=== PATIENT | female | born 1940 | race Caucasian/White ===

== ENCOUNTER 2019-08-06 09:24 | Outpatient (CLI) | payer MEDICARE | END 2019-08-06 23:59 | disposition home or self-care (01) | LOC: CFH 09:24 | PROVIDERS: ATTEND Internal Medicine | DX: K76.0 Fatty (change of) liver, not elsewhere classified (principal); J90 Pleural effusion, not elsewhere classified | CPT/HCPCS: 76700 ==

== ENCOUNTER 2019-08-19 09:09 | Inpatient (IN) | payer MEDICARE ==
[~2019-08-19] VITALS: Ht 162.6 cm; Wt 75.5 kg
--- NOTE | 2019-08-19 09:29 | NUR ---
pt to room. EDMD bedside.
--- NOTE | 2019-08-19 09:42 | NUR ---
78 Y/O FEMALE PRESENTS TO ED WITH C/O HYPOKALEMIA. 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 SO I'M HERE. I HAD THE LABS DONE" PT RESTING ON GURTRAVELERS REST. PT ASKED TO CHANGE INTO GOWN. PT FRIEND BEDSIDE.
--- NOTE | 2019-08-19 09:46 | NUR ---
PT STATES "I'VE HAD NAUSEA SINCE LATE MAY. MY PATHOLOGY LABORATORY AIDE HAS ALL SORTS OF TESTS GOING ON. SO THEY ARE AWARE."
--- NOTE | 2019-08-19 09:53 | NUR ---
PT PLACED ON CONT PULSE OX,NIBP, AND PHYSICIAN/ALLERGY/IMMUNOLOGY. BEDSIDE REPORT TO MIGUEL ÁNGEL MORELOS.
--- NOTE | 2019-08-19 09:55 | NUR ---
PT DENIES ANY PAIN AT THIS TIME.
[2019-08-19] MEDS ORDERED: SODIUM CHLORIDE FLUSH 10ML SYR IVF ONE (10:00)
[2019-08-19 10:18] LABS: BASOPHILS # (AUTO) 0.03 x10^3/uL (0-0.1); BASOPHILS % (AUTO) 0 % (0-1); EOSINOPHILS # (AUTO) 0.02 x10^3/uL (0-0.4); EOSINOPHILS % (AUTO) 0 % (1-7); LYMPHOCYTES # (AUTO) 0.79 x10^3/uL (1-3.4); LYMPHOCYTES % (AUTO) 8 % (22-44); MD NO; MEAN CORPUSCULAR HEMOGLOBIN 32.2 pg (27.0-34.8); MEAN CORPUSCULAR HGB CONC 33.8 g/dL (32.4-35.8); MEAN CORPUSCULAR VOLUME 95.1 fL (80-100); MEAN PLATELET VOLUME 8.9 fL (7.4-10.4); MONOCYTES # (AUTO) 1.15 x10^3/uL (0.2-0.8); MONOCYTES % (AUTO) 12 % (2-9); NEUTROPHILS # (AUTO) 8.06 x10^3/uL (1.8-6.8); NEUTROPHILS % (AUTO) 80 % (42-75); PLATELET COUNT 239 x10^3/uL (130-400); RED BLOOD COUNT 4.58 x10^6/uL (3.82-5.3); RED CELL DISTRIBUTION WIDTH 13.1 % (9.6-15.2)
[2019-08-19 10:36] LABS: ALANINE AMINOTRANSFERASE 55 U/L (12-78); ALBUMIN 2.9 g/dL (3.4-5.0); ALKALINE PHOSPHATASE 98 U/L (45-117); ANION GAP 10 mmol/L (5-15); BILIRUBIN,TOTAL 0.7 mg/dL (0.2-1.0); CALCIUM 8.5 mg/dL (8.5-10.1); CHLORIDE 88 mmol/L (98-107); CREATININE 2.39 mg/dL (0.55-1.02); TOTAL PROTEIN 7.1 g/dL (6.4-8.2)
--- NOTE | 2019-08-19 10:40 | NUR ---
LAB CALLED CRITICAL K OF 2.3. MADE AWARE.
[2019-08-19] MEDS ORDERED: POTASSIUM CHLORIDE 20 MEQ TAB.ER.PRT ONE (10:44)
[2019-08-19] MEDS ORDERED: NS + 40MEQ KCL 1,000 ML IV ONE (10:44)
[2019-08-19] MEDS: POTASSIUM CHLORIDE 40 MEQ in SODIUM CHLORIDE 0.45% 1,000 ML IV SCH ×2 (10:53→21:03)
[2019-08-19] MEDS ORDERED: POTASSIUM CHLORIDE 20 MEQ TAB.ER.PRT PO ONE (11:00)
[2019-08-19] MEDS ORDERED: OMEP-110 PO (11:19)
[2019-08-19] MEDS ORDERED: HYDROCHLOROTH12.5 MG PO (11:19)
[2019-08-19] MEDS ORDERED: LEVO50TA5 PO (11:19)
[2019-08-19] MEDS ORDERED: ASPI81TA50 PO (11:19)
[2019-08-19] MEDS ORDERED: CYCL5TAB PO (11:19)
[2019-08-19] MEDS ORDERED: ATOR20TA37 PO (11:19)
[2019-08-19] MEDS ORDERED: LOSA100T14 PO (11:19)
[2019-08-19] MEDS ORDERED: hydrALAzine 20 MG/ML, 1ML IVPush PRN (11:30)
[2019-08-19] MEDS ORDERED: IBUPROFEN 600 MG TABLET PO PRN (11:30)
[2019-08-19] MEDS ORDERED: ONDANSETRON 2MG/ML, 2ML IVPush PRN (11:30)
[2019-08-19] MEDS ORDERED: POTASSIUM CHLORIDE 20 MEQ in SODIUM CHLORIDE 0.9% 250 ML IV ONE (11:30)
[2019-08-19] MEDS ORDERED: BUTALB/APAP/CAFFEINE 50MG/325MG/40MG PO PRN (11:30)
[2019-08-19] MEDS ORDERED: ACETAMINOPHEN 325 MG TABLET PO PRN (11:30)
[2019-08-19] MEDS ORDERED: POLYETHYLENE GLYCOL 17 GM PACKET PO PRN (11:30)
[2019-08-19] MEDS ORDERED: TRAZODONE 50MG TABLET PO PRN (11:30)
--- NOTE | 2019-08-19 11:42 | NUR ---
LATE NOTE 1015- PT IN ROOM RESTING COMFORTABLY. ROOM AIR SATURATION OF 85% PT PLACED ON 2 LPM O2 VIA NC
[2019-08-19 12:30] VITALS: BP 152/87
[2019-08-19] MEDS ORDERED: MAGNESIUM SULFATE PMX 2GM/50ML 50 ML IV ONE (13:30)
[2019-08-19 14:18] VITALS: BP 130/71
[2019-08-19 15:25] LABS: ANION GAP 9 mmol/L (5-15); CALCIUM 8.4 mg/dL (8.5-10.1); CHLORIDE 91 mmol/L (98-107); CREATININE 2.52 mg/dL (0.55-1.02)
[2019-08-19 15:37] LABS: CULTURE INDICATED? YES; MICROSCOPIC INDICATED
[2019-08-19 18:30] VITALS: BP 108/67
[2019-08-19] MEDS: ATORVASTATIN 20 MG TABLET PO SCH (21:03)
[2019-08-20 02:18] LABS: BASOPHILS # (AUTO) 0.04 x10^3/uL (0-0.1); BASOPHILS % (AUTO) 1 % (0-1); EOSINOPHILS # (AUTO) 0.31 x10^3/uL (0-0.4); EOSINOPHILS % (AUTO) 4 % (1-7); LYMPHOCYTES # (AUTO) 1.19 x10^3/uL (1-3.4); LYMPHOCYTES % (AUTO) 14 % (22-44); MD NO; MEAN CORPUSCULAR HEMOGLOBIN 31.4 pg (27.0-34.8); MEAN CORPUSCULAR HGB CONC 32.7 g/dL (32.4-35.8); MEAN PLATELET VOLUME 8.6 fL (7.4-10.4); MONOCYTES # (AUTO) 1.09 x10^3/uL (0.2-0.8); MONOCYTES % (AUTO) 13 % (2-9); NEUTROPHILS # (AUTO) 5.73 x10^3/uL (1.8-6.8); NEUTROPHILS % (AUTO) 69 % (42-75); PLATELET COUNT 228 x10^3/uL (130-400); RED BLOOD COUNT 4.16 x10^6/uL (3.82-5.3); RED CELL DISTRIBUTION WIDTH 13.4 % (9.6-15.2)
[2019-08-20 02:22] VITALS: BP 147/86
[2019-08-20 02:23] LABS: ANION GAP 3 mmol/L (5-15); CHLORIDE 98 mmol/L (98-107); CREATININE 2.25 mg/dL (0.55-1.02)
[2019-08-20] MEDS ORDERED: POTASSIUM CHLORIDE 40 MEQ in SODIUM CHLORIDE 0.45% 1,000 ML IV SCH (03:00)
[2019-08-20] MEDS ORDERED: POTASSIUM CHLORIDE 20 MEQ TAB.ER.PRT PO ONE ×2 (07:30→14:30)
[2019-08-20] MEDS ORDERED: CEFTRIAXONE PMX 1GM/50ML 50 ML IV SCH (08:00)
[2019-08-20 08:30] VITALS: BP 165/89
[2019-08-20] MEDS: ASPIRIN 81 MG TABLET EC PO SCH (08:54)
[2019-08-20] MEDS: LEVOTHYROXINE 50 MCG TABLET PO SCH (08:54)
[2019-08-20] MEDS: OMEPRAZOLE 20 MG CAPSULE.DR PO SCH (08:54)
[2019-08-20] MEDS ORDERED: LOSARTAN 50MG TABLET PO SCH (09:00)
[2019-08-20 13:28] VITALS: BP 129/78
[2019-08-20] MEDS: HEPARIN 5,000 UNITS/ML, 1ML SQ SCH ×2 (15:13→21:47)
[2019-08-20 15:47] LABS: CREATININE,URINE RANDOM 95.6 mg/dL
[2019-08-20 19:22] VITALS: BP 135/81
[2019-08-20] MEDS: ATORVASTATIN 20 MG TABLET PO SCH (21:47)
[2019-08-21 00:36] VITALS: BP 138/83
[2019-08-21] MEDS: HEPARIN 5,000 UNITS/ML, 1ML SQ SCH ×3 (05:40→23:07)
[2019-08-21 06:44] LABS: BASOPHILS # (AUTO) 0.02 x10^3/uL (0-0.1); BASOPHILS % (AUTO) 0 % (0-1); EOSINOPHILS # (AUTO) 0.81 x10^3/uL (0-0.4); EOSINOPHILS % (AUTO) 11 % (1-7); LYMPHOCYTES # (AUTO) 1.11 x10^3/uL (1-3.4); LYMPHOCYTES % (AUTO) 15 % (22-44); MD NO; MEAN CORPUSCULAR HEMOGLOBIN 32.3 pg (27.0-34.8); MEAN PLATELET VOLUME 8.8 fL (7.4-10.4); MONOCYTES % (AUTO) 11 % (2-9); NEUTROPHILS # (AUTO) 4.58 x10^3/uL (1.8-6.8); NEUTROPHILS % (AUTO) 63 % (42-75); PLATELET COUNT 262 x10^3/uL (130-400); RED CELL DISTRIBUTION WIDTH 13.4 % (9.6-15.2)
[2019-08-21 06:54] LABS: ANION GAP 3 mmol/L (5-15); CALCIUM 8.4 mg/dL (8.5-10.1); CHLORIDE 103 mmol/L (98-107); CREATININE 1.27 mg/dL (0.55-1.02)
[2019-08-21 07:06] VITALS: BP 137/86
[2019-08-21] MEDS ORDERED: MAGNESIUM SULFATE PMX 2GM/50ML 50 ML ONE (07:26)
[2019-08-21] MEDS ORDERED: MAGNESIUM SULFATE PMX 2GM/50ML 50 ML IV ONE (07:30)
[2019-08-21] MEDS ORDERED: ADENOSINE 6 MG/2 ML IVPush ONE (07:30)
[2019-08-21] MEDS: LEVOTHYROXINE 50 MCG TABLET PO SCH (07:59)
[2019-08-21] MEDS: OMEPRAZOLE 20 MG CAPSULE.DR PO SCH (07:59)
[2019-08-21] MEDS: ASPIRIN 81 MG TABLET EC PO SCH (08:00)
[2019-08-21] MEDS: METOPROLOL TARTRATE 25 MG TABLET PO SCH ×2 (08:00→17:14)
[2019-08-21 13:40] VITALS: BP 139/82
[2019-08-21] MEDS: ATORVASTATIN 20 MG TABLET PO SCH (20:04)
[2019-08-21 20:21] VITALS: BP 163/92
[2019-08-22 00:58] VITALS: BP 191/74
[2019-08-22 03:00] VITALS: BP 165/80
[2019-08-22] MEDS: METOPROLOL TARTRATE 25 MG TABLET PO SCH ×2 (05:10→17:52)
[2019-08-22] MEDS: LEVOTHYROXINE 50 MCG TABLET PO SCH (05:10)
[2019-08-22 05:56] LABS: ANION GAP 4 mmol/L (5-15); CALCIUM 8.7 mg/dL (8.5-10.1); CHLORIDE 103 mmol/L (98-107)
[2019-08-22 05:59] LABS: CREATININE 0.86 mg/dL (0.55-1.02)
[2019-08-22 06:14] LABS: BASOPHILS # (AUTO) 0.04 x10^3/uL (0-0.1); BASOPHILS % (AUTO) 0 % (0-1); EOSINOPHILS # (AUTO) 0.47 x10^3/uL (0-0.4); EOSINOPHILS % (AUTO) 5 % (1-7); LYMPHOCYTES # (AUTO) 0.96 x10^3/uL (1-3.4); LYMPHOCYTES % (AUTO) 10 % (22-44); MD NO; MEAN CORPUSCULAR HEMOGLOBIN 31.7 pg (27.0-34.8); MEAN CORPUSCULAR HGB CONC 32.9 g/dL (32.4-35.8); MEAN CORPUSCULAR VOLUME 96.5 fL (80-100); MEAN PLATELET VOLUME 8.6 fL (7.4-10.4); MONOCYTES % (AUTO) 10 % (2-9); NEUTROPHILS % (AUTO) 74 % (42-75); PLATELET COUNT 299 x10^3/uL (130-400); RED BLOOD COUNT 4.64 x10^6/uL (3.82-5.3); RED CELL DISTRIBUTION WIDTH 13.1 % (9.6-15.2)
[2019-08-22] MEDS: HEPARIN 5,000 UNITS/ML, 1ML SQ SCH ×2 (07:00→16:02)
[2019-08-22] MEDS ORDERED: MAGNESIUM SULFATE PMX 4GM/100M 100 ML IV ONE (07:00)
[2019-08-22] MEDS ORDERED: POTASSIUM CHLORIDE 20 MEQ TAB.ER.PRT PO ONE ×2 (07:30→11:30)
[2019-08-22] MEDS: OMEPRAZOLE 20 MG CAPSULE.DR PO SCH (07:45)
[2019-08-22] MEDS: ASPIRIN 81 MG TABLET EC PO SCH (07:45)
[2019-08-22] MEDS: ONDANSETRON ODT 4 MG PO PRN (07:53)
[2019-08-22 09:55] VITALS: BP 118/65
[2019-08-22 15:27] VITALS: BP 107/72
[2019-08-22 19:23] VITALS: BP 157/86
[2019-08-22] MEDS: ATORVASTATIN 20 MG TABLET PO SCH (20:47)
[2019-08-22] MEDS ORDERED: HEPARIN 5,000 UNITS/ML, 1ML IV ONE (22:00)
[2019-08-22] MEDS ORDERED: HEPARIN 5,000 UNITS/ML, 1ML IV PRN (22:00)
[2019-08-22] MEDS: HEPARIN 25,000 UNITS/500ML PMX 500 ML IV PRN (23:17)
[2019-08-22] MEDS ORDERED: OMNIPAQUE 350 MG/ML, 100ML BOTTLE ONE (23:49)
[2019-08-23 01:17] VITALS: BP 155/92
[2019-08-23 05:08] LABS: BASOPHILS # (AUTO) 0.03 x10^3/uL (0-0.1); BASOPHILS % (AUTO) 0 % (0-1); EOSINOPHILS # (AUTO) 0.53 x10^3/uL (0-0.4); EOSINOPHILS % (AUTO) 7 % (1-7); LYMPHOCYTES % (AUTO) 14 % (22-44); MD NO; MEAN CORPUSCULAR HEMOGLOBIN 32.3 pg (27.0-34.8); MEAN CORPUSCULAR HGB CONC 32.9 g/dL (32.4-35.8); MEAN CORPUSCULAR VOLUME 98.3 fL (80-100); MEAN PLATELET VOLUME 8.6 fL (7.4-10.4); MONOCYTES # (AUTO) 0.86 x10^3/uL (0.2-0.8); MONOCYTES % (AUTO) 11 % (2-9); NEUTROPHILS # (AUTO) 5.54 x10^3/uL (1.8-6.8); NEUTROPHILS % (AUTO) 69 % (42-75); PLATELET COUNT 304 x10^3/uL (130-400); RED BLOOD COUNT 4.31 x10^6/uL (3.82-5.3); RED CELL DISTRIBUTION WIDTH 13.5 % (9.6-15.2)
[2019-08-23 05:15] LABS: ALBUMIN 2.4 g/dL (3.4-5.0); ANION GAP 6 mmol/L (5-15); CALCIUM 8.2 mg/dL (8.5-10.1); CHLORIDE 102 mmol/L (98-107)
[2019-08-23 05:19] LABS: ALANINE AMINOTRANSFERASE 34 U/L (12-78); ALKALINE PHOSPHATASE 71 U/L (45-117); BILIRUBIN,TOTAL 0.4 mg/dL (0.2-1.0); CREATININE 0.72 mg/dL (0.55-1.02); TOTAL PROTEIN 5.9 g/dL (6.4-8.2)
[2019-08-23] MEDS ORDERED: POTASSIUM CHLORIDE 20 MEQ TAB.ER.PRT PO ONE ×2 (06:00→11:00)
[2019-08-23] MEDS ORDERED: MAGNESIUM SULFATE PMX 2GM/50ML 50 ML IV ONE (06:00)
[2019-08-23] MEDS: LEVOTHYROXINE 50 MCG TABLET PO SCH (06:33)
[2019-08-23] MEDS: METOPROLOL TARTRATE 25 MG TABLET PO SCH ×2 (06:33→17:32)
[2019-08-23 07:14] VITALS: BP 161/89
[2019-08-23 07:37] LABS: TROPONIN I 0.411 ng/mL (0.000-0.045)
[2019-08-23] MEDS: ASPIRIN 81 MG TABLET EC PO SCH (08:40)
[2019-08-23] MEDS: OMEPRAZOLE 20 MG CAPSULE.DR PO SCH (08:40)
[2019-08-23 09:40] LABS: TROPONIN I 0.263 ng/mL (0.000-0.045)
[2019-08-23 10:05] VITALS: BP 186/96
[2019-08-23] MEDS: AMLODIPINE 5 MG TABLET PO SCH (11:31)
[2019-08-23] MEDS ORDERED: LIDOCAINE 1%, 10ML ONE (11:52)
[2019-08-23] MEDS ORDERED: NALOXONE 1 MG/ML, 2ML ONE (12:07)
[2019-08-23] MEDS ORDERED: FENTANYL PF 100 MCG/2ML ONE (12:07)
[2019-08-23] MEDS ORDERED: VISIPAQUE 320 MG/ML, 150ML BOTTLE ONE (13:30)
[2019-08-23 13:56] LABS: TROPONIN I 0.223 ng/mL (0.000-0.045)
[2019-08-23 14:08] VITALS: BP 165/83
[2019-08-23 17:32] LABS: TROPONIN I 0.268 ng/mL (0.000-0.045)
[2019-08-23] MEDS: ONDANSETRON ODT 4 MG PO PRN (18:36)
[2019-08-23 18:41] VITALS: BP 150/85
[2019-08-23] MEDS: ATORVASTATIN 20 MG TABLET PO SCH (21:50)
[2019-08-24 03:25] VITALS: BP 153/83
[2019-08-24] MEDS: HEPARIN 25,000 UNITS/500ML PMX 500 ML IV PRN (03:32)
[2019-08-24 04:56] VITALS: BP 171/95
[2019-08-24] MEDS: METOPROLOL TARTRATE 25 MG TABLET PO SCH ×2 (04:59→18:12)
[2019-08-24] MEDS: LEVOTHYROXINE 50 MCG TABLET PO SCH (05:00)
[2019-08-24 05:19] LABS: BASOPHILS # (AUTO) 0.02 x10^3/uL (0-0.1); BASOPHILS % (AUTO) 0 % (0-1); EOSINOPHILS # (AUTO) 0.68 x10^3/uL (0-0.4); EOSINOPHILS % (AUTO) 9 % (1-7); LYMPHOCYTES % (AUTO) 14 % (22-44); MD NO; MEAN CORPUSCULAR HEMOGLOBIN 32.2 pg (27.0-34.8); MEAN CORPUSCULAR HGB CONC 33.1 g/dL (32.4-35.8); MEAN CORPUSCULAR VOLUME 97.4 fL (80-100); MEAN PLATELET VOLUME 8.3 fL (7.4-10.4); MONOCYTES # (AUTO) 0.89 x10^3/uL (0.2-0.8); MONOCYTES % (AUTO) 11 % (2-9); NEUTROPHILS % (AUTO) 66 % (42-75); PLATELET COUNT 306 x10^3/uL (130-400); RED BLOOD COUNT 4.53 x10^6/uL (3.82-5.3); RED CELL DISTRIBUTION WIDTH 13.6 % (9.6-15.2)
[2019-08-24 05:33] LABS: ALBUMIN 2.5 g/dL (3.4-5.0); ANION GAP 6 mmol/L (5-15); CALCIUM 8.5 mg/dL (8.5-10.1); CHLORIDE 100 mmol/L (98-107)
[2019-08-24 05:37] LABS: ALANINE AMINOTRANSFERASE 44 U/L (12-78); ALKALINE PHOSPHATASE 76 U/L (45-117); BILIRUBIN,TOTAL 0.6 mg/dL (0.2-1.0); CREATININE 0.83 mg/dL (0.55-1.02); TOTAL PROTEIN 6.3 g/dL (6.4-8.2)
[2019-08-24 06:59] VITALS: BP 147/87
[2019-08-24] MEDS: OMEPRAZOLE 20 MG CAPSULE.DR PO SCH (09:23)
[2019-08-24] MEDS: AMLODIPINE 5 MG TABLET PO SCH (09:24)
[2019-08-24] MEDS: ASPIRIN 81 MG TABLET EC PO SCH (09:24)
[2019-08-24 13:33] VITALS: BP 115/69
[2019-08-24 18:11] VITALS: BP 134/79
[2019-08-24 18:34] VITALS: BP 131/78
[2019-08-24] MEDS: ATORVASTATIN 20 MG TABLET PO SCH (20:16)
[2019-08-25 02:44] VITALS: BP 153/89
[2019-08-25 04:58] LABS: BASOPHILS # (AUTO) 0.04 x10^3/uL (0-0.1); BASOPHILS % (AUTO) 1 % (0-1); EOSINOPHILS # (AUTO) 0.84 x10^3/uL (0-0.4); EOSINOPHILS % (AUTO) 10 % (1-7); LYMPHOCYTES % (AUTO) 15 % (22-44); MD NO; MEAN CORPUSCULAR HEMOGLOBIN 32.1 pg (27.0-34.8); MEAN CORPUSCULAR VOLUME 97.3 fL (80-100); MEAN PLATELET VOLUME 8.1 fL (7.4-10.4); MONOCYTES % (AUTO) 11 % (2-9); NEUTROPHILS # (AUTO) 5.29 x10^3/uL (1.8-6.8); NEUTROPHILS % (AUTO) 64 % (42-75); PLATELET COUNT 301 x10^3/uL (130-400); RED CELL DISTRIBUTION WIDTH 13.7 % (9.6-15.2)
[2019-08-25 05:01] VITALS: BP 154/89
[2019-08-25] MEDS: METOPROLOL TARTRATE 25 MG TABLET PO SCH ×2 (05:07→17:59)
[2019-08-25] MEDS: LEVOTHYROXINE 50 MCG TABLET PO SCH (05:08)
[2019-08-25 05:09] LABS: ALBUMIN 2.6 g/dL (3.4-5.0); ANION GAP 5 mmol/L (5-15); CALCIUM 8.7 mg/dL (8.5-10.1); CHLORIDE 100 mmol/L (98-107)
[2019-08-25 05:12] LABS: ALANINE AMINOTRANSFERASE 58 U/L (12-78); ALKALINE PHOSPHATASE 76 U/L (45-117); BILIRUBIN,TOTAL 0.6 mg/dL (0.2-1.0); CREATININE 0.95 mg/dL (0.55-1.02); TOTAL PROTEIN 6.2 g/dL (6.4-8.2)
[2019-08-25 07:10] VITALS: BP 129/80
[2019-08-25] MEDS: AMLODIPINE 5 MG TABLET PO SCH (08:45)
[2019-08-25] MEDS: ASPIRIN 81 MG TABLET EC PO SCH (08:45)
[2019-08-25] MEDS: OMEPRAZOLE 20 MG CAPSULE.DR PO SCH (08:45)
[2019-08-25 12:20] VITALS: BP 122/75
[2019-08-25] MEDS: HEPARIN 25,000 UNITS/500ML PMX 500 ML IV PRN (13:27)
[2019-08-25] MEDS ORDERED: MAGNESIUM SULFATE PMX 2GM/50ML 50 ML IV ONE (14:00)
[2019-08-25] MEDS ORDERED: HEPARIN 5,000 UNITS/ML, 1ML IV PRN (14:04)
[2019-08-25] MEDS ORDERED: HEPARIN 25,000 UNITS/500ML PMX 500 ML IV PRN (14:30)
[2019-08-25 17:59] VITALS: BP 156/88
[2019-08-25 19:00] VITALS: BP 128/76
[2019-08-25] MEDS: APIXABAN 5 MG TABLET PO SCH (21:01)
[2019-08-25] MEDS: ATORVASTATIN 20 MG TABLET PO SCH (21:01)
[2019-08-26 01:25] VITALS: BP 125/71
[2019-08-26 05:25] LABS: BASOPHILS # (AUTO) 0.02 x10^3/uL (0-0.1); BASOPHILS % (AUTO) 0 % (0-1); EOSINOPHILS # (AUTO) 0.69 x10^3/uL (0-0.4); EOSINOPHILS % (AUTO) 11 % (1-7); LYMPHOCYTES # (AUTO) 1.07 x10^3/uL (1-3.4); LYMPHOCYTES % (AUTO) 17 % (22-44); MD NO; MEAN CORPUSCULAR HEMOGLOBIN 32.1 pg (27.0-34.8); MEAN CORPUSCULAR HGB CONC 32.8 g/dL (32.4-35.8); MEAN CORPUSCULAR VOLUME 97.6 fL (80-100); MEAN PLATELET VOLUME 8.1 fL (7.4-10.4); MONOCYTES # (AUTO) 0.78 x10^3/uL (0.2-0.8); MONOCYTES % (AUTO) 12 % (2-9); NEUTROPHILS # (AUTO) 3.89 x10^3/uL (1.8-6.8); NEUTROPHILS % (AUTO) 60 % (42-75); PLATELET COUNT 303 x10^3/uL (130-400); RED BLOOD COUNT 4.35 x10^6/uL (3.82-5.3); RED CELL DISTRIBUTION WIDTH 13.7 % (9.6-15.2)
[2019-08-26 05:33] LABS: ALBUMIN 2.5 g/dL (3.4-5.0); ANION GAP 4 mmol/L (5-15); CALCIUM 8.8 mg/dL (8.5-10.1); CHLORIDE 102 mmol/L (98-107)
[2019-08-26 05:37] LABS: ALANINE AMINOTRANSFERASE 64 U/L (12-78); ALKALINE PHOSPHATASE 73 U/L (45-117); BILIRUBIN,TOTAL 0.5 mg/dL (0.2-1.0); CREATININE 0.86 mg/dL (0.55-1.02); TOTAL PROTEIN 6.2 g/dL (6.4-8.2)
[2019-08-26 06:00] VITALS: BP 150/83
[2019-08-26] MEDS: LEVOTHYROXINE 50 MCG TABLET PO SCH (06:03)
[2019-08-26] MEDS: METOPROLOL TARTRATE 25 MG TABLET PO SCH ×2 (06:04→18:11)
[2019-08-26 06:39] VITALS: BP 133/75
[2019-08-26] MEDS: ASPIRIN 81 MG TABLET EC PO SCH (09:51)
[2019-08-26] MEDS: AMLODIPINE 5 MG TABLET PO SCH (09:52)
[2019-08-26] MEDS: APIXABAN 5 MG TABLET PO SCH ×2 (09:52→18:42)
[2019-08-26] MEDS: OMEPRAZOLE 20 MG CAPSULE.DR PO SCH (09:53)
[2019-08-26 13:52] VITALS: BP 120/68
[2019-08-26] MEDS ORDERED: AMLO-150 PO (14:03)
[2019-08-26] MEDS ORDERED: APIX5TAB PO (14:03)
[2019-08-26] MEDS: ATORVASTATIN 20 MG TABLET PO SCH (18:43)
== END 2019-08-26 20:46 | disposition home health service (06) | DRG 166 ==
LOC: ED 11:15 → EDIP 11:16 → ED 11:55 → 4WST 12:11 → 5SO 08-23 09:51
PROVIDERS: ADMIT Family Medicine; ATTEND Hospitalist
PROC: 06H03DZ Insertion of Intraluminal Device into Inferior Vena Cava, Percutaneous Approach (ICD-10-PCS; principal; 2019-08-23)
PROC: B549ZZA Ultrasonography of Inferior Vena Cava, Guidance (ICD-10-PCS; 2019-08-23)
PROC: B5191ZA Fluoroscopy of Inferior Vena Cava using Low Osmolar Contrast, Guidance (ICD-10-PCS; 2019-08-23)
DX: I26.99 Other pulmonary embolism without acute cor pulmonale (principal); N17.0 Acute kidney failure with tubular necrosis; J96.00 Acute respiratory failure, unspecified whether with hypoxia or hypercapnia; I50.31 Acute diastolic (congestive) heart failure; E87.1 Hypo-osmolality and hyponatremia; E87.3 Alkalosis; E46 Unspecified protein-calorie malnutrition; I82.402 Acute embolism and thrombosis of unspecified deep veins of left lower extremity; I47.1 Supraventricular tachycardia; D68.69 Other thrombophilia; E83.42 Hypomagnesemia; E78.00 Pure hypercholesterolemia, unspecified; I11.0 Hypertensive heart disease with heart failure; D72.829 Elevated white blood cell count, unspecified; E03.9 Hypothyroidism, unspecified; E78.5 Hyperlipidemia, unspecified; E83.39 Other disorders of phosphorus metabolism; E87.6 Hypokalemia; I27.20 Pulmonary hypertension, unspecified; I35.8 Other nonrheumatic aortic valve disorders; K76.0 Fatty (change of) liver, not elsewhere classified; Z66 Do not resuscitate; M19.90 Unspecified osteoarthritis, unspecified site; R74.0 Nonspecific elevation of levels of transaminase and lactic acid dehydrogenase [LDH]; R73.9 Hyperglycemia, unspecified; R82.71 Bacteriuria; Z79.899 Other long term (current) drug therapy; Z90.710 Acquired absence of both cervix and uterus
CPT/HCPCS: 36415; 37191; 71045; 71260; 74177; 76770; 80048; 80053; 80069; 81001; 82306; 82570; 82607; 82728; 83540; 83550; 83690; 83735; 84100; 84300; 84443; 84484; 85025; 85520; 87040; 87086; 93005; 93306; 93970; C1880; C1894; G0378; J0696; J1644; J2405; J3010; J3480; Q0162; Q9967; C1769; J0360; J2310; J3475; J7050

== ENCOUNTER → 2019-12-08 | Outpatient (CLI) | payer MEDICARE ==
[~2019-12-08] MED LIST: AMLO-150 PO; APIX5TAB PO; ASPI81TA50 PO; ATOR20TA37 PO; CYCL5TAB PO; HYDROCHLOROTH12.5 MG PO; LEVO50TA5 PO; LOSA100T14 PO; OMEP-110 PO
== END | disposition home or self-care (01) ==
LOC: CFH 09:24
PROVIDERS: ATTEND Internal Medicine Cardiovascular Disease
DX: I08.3 Combined rheumatic disorders of mitral, aortic and tricuspid valves (principal); I10 Essential (primary) hypertension; E78.5 Hyperlipidemia, unspecified; I26.99 Other pulmonary embolism without acute cor pulmonale
CPT/HCPCS: 93306